=== PATIENT | male | born 1995 | race Caucasian/White ===

== ENCOUNTER 2018-02-27 20:45 | Emergency (ER) | payer BC, SELFPAY ==
[2018-02-27 20:45] VITALS: BP 151/71; PULSE 96; RESP 16; TEMP 36.4; O2SAT 98; BMI 22.1
--- NOTE | 2018-02-27 22:01 | ED.VISSUMM ---
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 Unknown last tetanus. Denies any other injuries. Bleeding controlled. Physical Examination: Afebrile vital signs are stable 1.5 cm elliptical laceration to the right thigh. There is no active bleeding. Neurovascularly intact. Normal muscle Emergency Department Course and Treatment: Tetanus was updated with Jose. Wound was locally anesthetized using 1% lidocaine washed with Shur-Clens and explored. It was closed using a total of 3 simple interrupted 4-0 Ethilon sutures. Wound care discussed with patient. Stitches will need to be removed in 10 days. Impression: 1. 1.5 cm right thigh laceration is. 2. Tetanus update This note was generated with [employer] dictation software. It may contain incorrect words, spelling, and punctuation that were not noted in review of the chart prior to signing ED Disposition - Plan for ED Patient: Disposition: Home or Assisted Living Chief Complaint: Laceration Instructions: ED Laceration All Referrals: Kurt Feliz MD [STAFF PHYSICIAN] - 10 Day for suture removal
[2018-02-27] MEDS: Diphth,Pertuss(Acell),Tet Vac 0.5 ML Vial IM (22:14)
== END 2018-02-27 22:22 | disposition home or self-care (01) ==
PROVIDERS: Emergency Provider Emergency Medicine
DX: S71.111A Laceration without foreign body, right thigh, initial encounter (principal); Z23 Encounter for immunization; Z72.0 Tobacco use; W45.8XXA Other foreign body or object entering through skin, initial encounter; Y93.89 Activity, other specified; Y92.89 Other specified places as the place of occurrence of the external cause; Y99.8 Other external cause status
CPT/HCPCS: 12001; 90471; 90715; 99284